=== PATIENT | female | born 1960 | race African-American/Black ===

== ENCOUNTER 2016-05-13 14:48 | Emergency (ER) | payer BC ==
[~2016-05-13 14:48] MED LIST: KDUR10 PO; LOPRESS HCT1 TAB PO; METHOC500B PO; MOBIC15 MG PO; OXYCOD PO
== END 2016-05-13 15:00 | disposition home or self-care (01) ==
LOC: ER 14:48
DX: M54.5 Low back pain (principal); I10 Essential (primary) hypertension; Z79.899 Other long term (current) drug therapy
CPT/HCPCS: 72100; 99283

== ENCOUNTER 2016-05-19 17:18 | Inpatient (IN) | payer BC ==
--- NOTE | ~2016-05-19 | OP ---
Record Of Operation [facility] [address] [place]. [address] NAME: TAISHA DONAHUE : 64 STATUS : ADM Jayme PAT#: [id number] AGE: 56 ADM/REG DATE : 05/19/16 MR#: [id number] REPORT SERV DATE: 05/20/16 DICTATED BY: LEODAN NESBITT DATE: 05/20/16 REPORT STATUS : Draft TRANSCRIBED BY: MODL DATE: 05/20/16 DATE OF PROCEDURE: 05/20/2016 PREOPERATIVE DIAGNOSIS: Massive herniated nucleus pulposus, central right L4-5 with intractable radiculopathy and dropfoot. POSTOPERATIVE DIAGNOSIS: Massive herniated nucleus pulposus, central right L4-5 with intractable radiculopathy and dropfoot. PROCEDURES: 1. Microscopic navigation-assisted surgery. 2. Right L4-5 hemilaminotomy and microdiskectomy. SURGEON: Leodan Nesbitt D.O. HARNESS PULLER: Rudy Washington. ANESTHESIA: General. BLOOD LOSS: 10 mL. INDICATIONS: Indications for surgery and risks were explained. They are listed in the history and physical. See that for detail. Today, the patient was identified in the preop holding area. All questions were answered. The patient voiced understanding of the risks, willingness to accept those, and requested to proceed with surgery. PROCEDURE IN DETAIL: Antibiotic prophylaxis was given. Neurophysiology monitoring leads were inserted. The patient was brought to the operative suite where general anesthetic including endotracheal intubation was administered. Barger catheter was not necessary. She was placed prone on a Dave spine frame. Bony prominences were carefully padded. Thoracolumbar spine was scrubbed with Hibiclens solution. DuraPrep was painted. Sterile drapes were applied. Because of the complexity of surgery, the need to identify correct level of surgery operatively, as well as desire to carry out the safest and most precise dissection with least amount of radiation exposure, I felt the intraoperative navigation was mandatory. A small stab wound was carried out at the left posterosuperior iliac spine. A percutaneous pin with navigational frame attached was inserted in the PSIS. Intraoperative CT scan with O-arm was obtained. CT information was used to register the navigational system. With navigational assistance, I identified the L4-5 level just minimally to the right of midline, a 2 cm skin incision was carried out. A blunt navigated probe was placed through the fascia and muscle and docked over the L4-5 interlaminar space. Muscle dilators were Record Of Operation [facility] [address] [place]. [address] NAME: TAISHA DONAHUE : 64 STATUS : ADM Jayme PAT#: [id number] AGE: 56 ADM/REG DATE : 05/19/16 MR#: [id number] REPORT SERV DATE: 05/20/16 DICTATED BY: LEODAN NESBITT DATE: 05/20/16 REPORT STATUS : Draft TRANSCRIBED BY: ROYCE DATE: 05/20/16 inserted followed by placement of a tubular retractor attached to an arm mount table. The microscope was sterilely draped and used throughout the remainder of the procedure. With navigational assistance, I identified the amount of lamina of the L4 that needed to be removed in order to reach the cephalad boundary of the disk space. I removed approximately 50% of the lamina of the L4, approximately 20% of the medial facet joint of L4-5. The lateral ligamentum flavum was elevated and removed. I then elevated and I was able to mobilize the thecal sac and the L5 nerve root and as I retracted toward the midline, massively extruded disk was removed. There were three large fragments removed in their entirety. This completely removed all disk fragments. I did not have to go to the left side at all. I was able used a Benton ball and probed underneath the thecal sac and felt no impingement of any kind on the left side. After the diskectomy was completed, the wound was irrigated. The retractor was removed. No bleeding was noted. The fascial layer was allowed to reapproximate itself. The subcutaneous tissue was closed with 2-0 Vicryl sutures, 2-0 vertical mattress nylon suture was used for skin closure. Sterile dressings were applied. The patient was awakened, extubated, and taken to the recovery room in satisfactory condition having tolerated the procedure well. Sponge, needle, and instrument counts were correct. No intraoperative complications noted. JUAN DIEGO/ROYCE Leodan Nesbitt D.O. / [id number] CC: Dandre Cooley,JOE LI
--- NOTE | ~2016-05-19 | PREOPHP ---
PreOp History and Physical [facility] [address] [place]. [address] NAME: TAISHA DONAHUE : 64 STATUS : ADM Jayme PAT#: [id number] AGE: 56 ADM/REG DATE : 05/19/16 MR#: [id number] REPORT SERV DATE: 05/20/16 DICTATED BY: LEODAN CATES DATE: 05/20/16 REPORT STATUS : Draft TRANSCRIBED BY: MODL DATE: 05/20/16 CHIEF COMPLAINT: Intractable right hip leg pain. HISTORY OF PRESENT ILLNESS: This is a 56-year-old lady with severe intractable right hip leg pain. The patient's symptoms started about 2 weeks ago. She had not had any particular injury. She has had a previous lumbar diskectomy in 2012, did very well and return to normal activity. 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 The pain has now become so intractable she saw me in the office yesterday afternoon in a wheelchair, the pain was 10/10. The patient could not stand and walk at all because the pain was just totally intractable. The patient has been on medications including Tylenol 3. She has significant weakness of her right foot. On exam was found to have a complete drop foot on the right side. The patient was having so much intractable pain, I knew there was no way she could lie down to have an MRI so we admitted her for IV pain control, and urgent MRI was obtained. The MRI shows a massive extruded disk herniation completely filling the canal at L4-5. She does not have symptoms of cauda equina, but does have severe the thecal sac and nerve impingement, certainly compatible with the drop foot. The cause of the above because she has such a significant neurologic deficit, I have discussed with her a right- sided L4-5 hemilaminotomy and microdiskectomy. This is a recurrent herniation. The previous herniation was at L4-5 on the left side. I have explained to her the risks would include, but not limited to infection, there could always injury to the thecal sac and nerve roots with numbness, tingling, weakness, even paralysis. Incidental durotomy with subsequent meningitis, right otitis or need for surgical drainage or repair is explained. Recurrent herniation is always a possibility. If she has another herniation she would most likely require stabilization through our arthrodesis. Perioperative complications such as UTI, PE, pneumonia, VT, CVA, etc. was explained as well. PAST MEDICAL HISTORY: Included sleep apnea, hypertension, and exogenous obesity. PAST SURGICAL HISTORY: She has had tonsillectomy, adenoidectomy, and L4-5 diskectomy on the left. CURRENT MEDICATIONS: 1. Amlodipine. 2. Tylenol No. 3. 3. Flexeril. 4. Meloxicam. 5. Vitamin D3. ALLERGIES: NONE. SOCIAL HISTORY: She is . She is a daily smoker against our advice. We told her she should absolutely stop immediately. She never uses alcohol. FAMILY HISTORY: Negative except 1 daughter who has no problems. REVIEW OF SYSTEMS: Otherwise negative. PreOp History and Physical [address] [address] NAME: TAISHA DONAHUE : 64 STATUS : ADM Jayme PAT#: [id number] AGE: 56 ADM/REG DATE : 05/19/16 MR#: [id number] REPORT SERV DATE: 05/20/16 DICTATED BY: LEODAN CATES DATE: 05/20/16 REPORT STATUS : Draft TRANSCRIBED BY: ROYCE DATE: 05/20/16 PHYSICAL EXAMINATION: VITAL SIGNS: She is 5 feet 5 inches, weight 180 pounds. Alert, cooperative, well oriented. Again, she was in a wheelchair. HEENT: Exam is grossly normal. LUNGS: Clear to auscultation. HEART: Rate is regular and rhythmic. ABDOMEN: Soft with good bowel sounds. No peritoneal signs noted. MUSCULOSKELETAL: The spine itself has a previous midline incision, which is well healed. The patient has minimal degrees of spasm. She has negative Skylar signs, negative FABERE signs. She has a markedly positive straight leg raising on the right side. At even 20 degrees to 30 degrees, she has a positive contralateral straight leg raising sign on the left. She has a complete drop foot with strength of less than 3/5 for tibialis anterior, posterior tibialis, and EHL. There is a fairly dense decreased sensation at L5 distribution on the right compared to left. Patellar reflex is 1/4. Achilles reflex is 1/4. Toes are downgoing. No ankle clonus is found. There is no evidence of myelopathy. Orthopedically, she has no pain with moving hips, knees, or ankles. There are good pulses in all four extremities. No abnormal skin lesions are found. ASSESSMENT: 1. Acute intractable right leg pain. 2. Drop foot, right side. 3. MRI proven large massive HNP with extrusion on the right than central L4-5. RECOMMENDATIONS: As listed above. /ROYCE Leodan Cates D.O. / [id number] CC: Leodan Cates D.O.
[2016-05-19 18:36] LABS: BASOPHILS 0.3 %; BASOPHILS ABSOLUTE 0.01 10/3/uL (0.0-0.16); EOSINOPHILS 4.8 %; EOSINOPHILS ABSOLUTE 0.17 10/3/uL (0.0-0.53); HEMATOCRIT 38.6 % (36.0-48.0); HEMOGLOBIN 12.6 g/dL (12.0-16.0); LYMPHOCYTES 50.4 %; LYMPHOCYTES ABSOLUTE 1.77 10/3/uL (0.67-4.30); MEAN CORPUS HGB CONC 32.6 g/dL (32.0-36.0); MEAN CORPUSCULAR HEMOGLOB 27.8 pg (26.0-34.0); MEAN CORPUSCULAR VOLUME 85.2 fL (80-100); MEAN PLATELET VOLUME 9.9 fL (9.2-13.0); MONOCYTES 9.1 %; MONOCYTES ABSOLUTE 0.32 10/3/uL (0.21-1.20); NEUTROPHILS 35.4 %; NEUTROPHILS ABSOLUTE 1.24 10/3/uL (2.02-8.40); PLATELET COUNT 166 10/3/uL (150-400); RBC DISTRIBUTION WIDTH 15.5 % (12.0-16.0); RED CELL COUNT 4.53 10/6/uL (4.0-5.6); WHITE BLOOD CELLS 3.5 10/3/uL (4.5-10.5)
[2016-05-19 18:37] LABS: MANUAL DIFF NO %
[2016-05-19] MEDS ORDERED: NORV10 PO (20:04)
[2016-05-19] MEDS ORDERED: MOBIC7.5 PO (20:04)
[2016-05-19] MEDS ORDERED: FLEX PO (20:04)
[2016-05-19] MEDS ORDERED: VITAMIN D400 UNI1 PO (20:05)
[2016-05-19] MEDS ORDERED: T3 PO (20:05)
[2016-05-19] MEDS ORDERED: VITAMIN B PO (20:05)
[2016-05-19 22:21] LABS: A/G RATIO 0.8 (0.7-1.9); ALBUMIN 3.9 G/DL (3.5-5.0); ALKALINE PHOSPHATASE 72 U/L (45-117); BUN (BLOOD UREA NITROGEN) 19 MG/DL (6-23); CALCIUM, SERUM 9.7 MG/DL (8.5-10.4); CHLORIDE, SERUM 110 MMOL/L (96-112); CO2 (CARBON DIOXIDE) 24 MMOL/L (24-34); CREATININE 1.17 MG/DL (0.55-1.02); GFR AFRICAN AMERICAN 61 ML/MIN (>=60); GFR NON AFRICAN AMERICAN 53 ML/MIN (>=60); GLOBULIN 5.2 G/DL (2.5-4.1); GLUCOSE, SERUM 98 MG/DL (60-99); POTASSIUM, SERUM 3.4 MMOL/L (3.5-5.3); SGOT(AST) 46 U/L (5-40); SGPT(ALT) 22 U/L (5-65); SODIUM, SERUM 145 MMOL/L (135-148); TOTAL BILIRUBIN 0.6 MG/DL (0-1.2); TOTAL PROTEIN 9.1 G/DL (6.0-8.5)
[2016-05-20 07:20] LABS: ASCORBIC ACID (UR NOT ORDER) NEG (NEG); BILIRUBIN, URINE NEGATIVE (NEG); KETONE, URINE TRACE MG/DL (NEG); LEUKOCYTE ESTERASE(NOT OR TRACE (NEG); WBC (NOT ORDERED) (RFLEX) 16 (0-5)
[2016-05-21] MEDS ORDERED: OXYCOD PO (09:38)
[2016-05-21] MEDS ORDERED: NAP500 PO (09:38)
[2016-05-21] MEDS ORDERED: METHOC500B PO (09:38)
== END 2016-05-21 12:37 | disposition home or self-care (01) | DRG 520 ==
LOC: 3SO 17:18
PROVIDERS: Orthopaedic Surgery Orthopaedic Surgery of the Spine
PROC: 0SB20ZZ Excision of Lumbar Vertebral Disc, Open Approach (ICD-10-PCS; principal; 2016-05-19)
PROC: 8E0WXBG Computer Assisted Procedure of Trunk Region, With Computerized Tomography (ICD-10-PCS; 2016-05-19)
DX: M51.16 Intervertebral disc disorders with radiculopathy, lumbar region (principal); I10 Essential (primary) hypertension; D64.9 Anemia, unspecified; G47.30 Sleep apnea, unspecified; M21.371 Foot drop, right foot; Z68.30 Body mass index [BMI] 30.0-30.9, adult; F17.210 Nicotine dependence, cigarettes, uncomplicated; Z79.1 Long term (current) use of non-steroidal anti-inflammatories (NSAID); Z79.899 Other long term (current) drug therapy; Z90.89 Acquired absence of other organs
CPT/HCPCS: 71020; 72148; 80053; 81001; 84703; 85025; 88304; 88311; 93005; 94660; 96374; 96376; A9270-GY; G0378; J0690; J1885; J2250; J2274; J2405; J2710; J3010; J3370